=== PATIENT | female | born 1985 | race Caucasian/White ===

== ENCOUNTER 2019-12-10 18:29 | Emergency (ER) | payer OTHER ==
[2019-12-10 18:34] VITALS: RESP 18; TEMP 98.2
[2019-12-10] MEDS ORDERED: METOCLOPRAMIDE 5 MG/ML 2 ML VIAL IVP STA (18:53)
[2019-12-10] MEDS ORDERED: diphenhydrAMINE 50 MG/ML 1 ML VIAL IVP STA (18:54)
[2019-12-10] MEDS ORDERED: RX INFO: IV CONTRAST WAS GIVEN 1 EACH MISC MISCELLANE PRN (19:33)
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
--- NOTE | 2019-12-10 19:51 | CT ---
EXAMINATION: CT brain wo con DATE AND TIME: 12/10/2019 7:10 PM CLINICAL INDICATION: PHH; acute onset headache TECHNIQUE: Standard departmental protocol.; 1078.4; COMPARISON: None. FINDINGS: The calvarium is intact. There is no intracranial hemorrhage. There is no intracranial mass or mass effect. No definite new intra-axial or extra-axial attenuation defect. The paranasal sinuses, middle ear cavities, and mastoid sinus air cells are clear. The orbits are unremarkable. IMPRESSION: NO ACUTE PROCESS.
[2019-12-10 19:52] LABS: Basophils % (A) 0 %; Eosinophils # (A) 0.2 k/uL (0-0.7); Eosinophils % (A) 3 %; HCT 39.1 % (34.0-46.0); HGB 13.1 gm/dL (11.4-16.0); Lymphocytes # (A) 2.6 k/uL (1.0-4.8); Lymphocytes % (A) 32 %; MCH 30.9 pg (25.0-35.0); MCHC 33.4 g/dL (31.0-37.0); MCV 92.4 fL (80.0-100.0); Mean Platelet Volume 8.5; Monocytes # (A) 0.3 k/uL (0-1.0); Monocytes % (A) 3 %; Neutrophils # (A) 4.9 k/uL (1.3-7.7); Neutrophils % (A) 60 %; Platelet Count 306 k/uL (150-450); RBC 4.23 m/uL (3.80-5.40); RDW 11.8 % (11.5-15.5); WBC 8.2 k/uL (3.8-10.6)
[2019-12-10 20:01] LABS: ALT 11 U/L (4-34); AST 27 U/L (14-36); African American GFR (CKD) >90 (>60 ml/min/1.73 sqM); Albumin 4.6 g/dL (3.5-5.0); Alkaline Phosphatase 75 U/L (38-126); Anion Gap 8 mmol/L; Blood Urea Nitrogen 9 mg/dL (7-17); Calcium 9.7 mg/dL (8.4-10.2); Carbon Dioxide 28 mmol/L (22-30); Chloride 102 mmol/L (98-107); Glucose 91 mg/dL (74-99); Non-African American GFR(CKD) >90 (>60 ml/min/1.73 sqM); Potassium 4.1 mmol/L (3.5-5.1); Sodium 138 mmol/L (137-145); Total Bilirubin 0.3 mg/dL (0.2-1.3); Total Protein 7.1 g/dL (6.3-8.2)
--- NOTE | 2019-12-10 21:52 | CT ---
EXAMINATION TYPE: CT angio head w con with 3-D reconstruction renderings DATE OF EXAM: 12/10/2019 8:38 PM COMPARISON: CT head without contrast 12/10/2019 7:08 PM HISTORY: Acute onset headache, felt between eyes CT DLP: 559.3 mGycm Automated exposure control for dose reduction was used. TECHNIQUE: Performed with IV Contrast, patient injected with 100 mL of Isovue 370. 3-D reconstructions. FINDINGS: The anterior and posterior arterial circulation is well visualized. There are no abnormalities. Speci fically, the study is negative for aneurysm. The contrast enhancement pattern is unremarkable. IMPRESSION: NEGATIVE EXAMINATION.
[2019-12-10] MEDS ORDERED: KETOROLAC 30 MG/ML 1 ML VIAL IVP STA (21:54)
[2019-12-10] MEDS ORDERED: SODIUM CHLORIDE 0.9% 1,000 ML IV STA (21:55)
[2019-12-10 23:47] VITALS: BP 123/54; PULSE 82
== END 2019-12-10 23:40 | disposition home or self-care (01) ==
LOC: EC 18:29
DX: R51 Headache (principal); R11.0 Nausea; H53.9 Unspecified visual disturbance; Z86.69 Personal history of other diseases of the nervous system and sense organs
CPT/HCPCS: 36415; 80053; 85025; 70496; 70450; 99284; 96374; 96375 ×2; 96361; J1200; J2765; J1885; Q9967